=== PATIENT | female | born 1985 | race Caucasian/White ===

== ENCOUNTER → 2016-10-14 | Outpatient (REF) | payer OTHER ==
[~2016-10-14] MED LIST: AMOX500C PO; BENA25CA4 PO; DICL10TA PO; PRENCHW PO; REGL5TAB2 PO
== END ==
LOC: M LAB REF 13:05
PROVIDERS: ATTEND Family Medicine Addiction Medicine
DX: N39.0 Urinary tract infection, site not specified (principal)

== ENCOUNTER 2016-11-18 18:32 | Emergency (ER) | payer OTHER ==
[~2016-11-18] VITALS: Ht 172.7 cm; Wt 54.5 kg
[2016-11-18] MEDS ORDERED: PRENCHW PO (18:38)
[2016-11-18] MEDS ORDERED: AMOX500C PO (21:17)
[2016-11-18 21:23] VITALS: BP 124/75
[2016-11-18] MEDS ORDERED: AMOXICILLIN 500 MG CAP PO ONE (21:30)
== END 2016-11-18 21:30 | disposition home or self-care (01) ==
LOC: M ED 18:32
DX: O23.40 Unspecified infection of urinary tract in pregnancy, unspecified trimester (principal); O99.43 Diseases of the circulatory system complicating the puerperium; Z87.891 Personal history of nicotine dependence; Z3A.00 Weeks of gestation of pregnancy not specified; Z79.899 Other long term (current) drug therapy

== ENCOUNTER 2016-12-10 15:37 | Emergency (ER) | payer OTHER ==
[~2016-12-10] VITALS: Ht 172.7 cm; Wt 54.5 kg
[~2016-12-10 15:37] MED LIST changes: -BENA25CA4 PO; -DICL10TA PO; -REGL5TAB2 PO
[2016-12-10] MEDS ORDERED: PROMETHAZINE INJ 25 MG/ML VIAL (J2550) IV ONE (16:00)
[2016-12-10] MEDS ORDERED: FAMOTIDINE INJ 20MG/2ML VIAL (S0028) IVP ONE (16:00)
[2016-12-10] MEDS ORDERED: NS 1,000 ML IV ONE (16:00)
[2016-12-10 16:17] LABS: BASO % 0.1 % (0.0-1.0); EOS # 0.1 K/mm3 (0.0-0.50); EOS % 0.9 % (0.0-3.0); LARGE UNSTAINED CELL % 0.2 % (0.0-4.0); LYMPH # 0.5 K/mm3 (1.5-4.5); LYMPH % 3.2 % (24.0-44.0); MEAN CORPUSCULAR HEMOGLOBIN 30.4 pg (27.0-33.0); MEAN CORPUSCULAR HGB CONC 34.1 g/dl (32.0-36.5); MEAN CORPUSCULAR VOLUME 89.3 fl (80.0-96.0); MONO # 0.2 K/mm3 (0.0-0.8); MONO % 1.6 % (0.0-5.0); NEUTROPHILS # 13.2 K/mm3 (1.8-7.7); NEUTROPHILS % 94.1 % (36.0-66.0); PLATELET COUNT, AUTOMATED 225 k/mm3 (150-450); RED CELL DISTRIBUTION WIDTH 12.9 % (11.5-14.5); WHITE BLOOD COUNT 14.1 K/mm3 (4.0-10.0)
[2016-12-10 16:37] LABS: ALBUMIN 3.8 GM/DL (3.2-5.2); ALBUMIN/GLOBULIN RATIO 1.06 (1.00-1.93); ALKALINE PHOSPHATASE 49 U/L (45-117); ALT/SGPT 12 U/L (12-78); ANION GAP 13 MEQ/L (8-16); AST/SGOT 13 U/L (15-37); BILIRUBIN,DIRECT 0.1 MG/DL (0.0-0.2); BILIRUBIN,TOTAL 0.5 MG/DL (0.2-1.0); BLOOD UREA NITROGEN 9 MG/DL (7-18); CALCIUM LEVEL 8.4 MG/DL (8.5-10.1); CARBON DIOXIDE LEVEL 21 MEQ/L (21-32); CHLORIDE LEVEL 106 MEQ/L (98-107); CREATININE FOR GFR 0.78 MG/DL (0.55-1.02); GLOMERULAR FILTRATION RATE > 60.0 (>60); GLUCOSE, FASTING 161 MG/DL (70-105); POTASSIUM SERUM 4.1 MEQ/L (3.5-5.1); SODIUM LEVEL 140 MEQ/L (136-145); TOTAL PROTEIN 7.4 GM/DL (6.4-8.2)
--- NOTE | 2016-12-10 16:41 | REP ---
Obstetric sonography: History: Nausea vomiting, chills. Assess for IUP. Findings: Transabdominal scanning confirms the presence of a single living intrauterine gestation in a free-floating lie. Embryonic pole is 42 mm in crown-rump length corresponding to a gestational age estimate of 11 weeks 0 days. heart rate is recorded at 169 beats per minute. No subchorionic hemorrhage is identified. No extrauterine abnormality is observed. No gross anomalies seen. Impression: Viable single intrauterine gestation at 11 weeks 0 days by crown-rump length. No complication is identified. SKYE by today's sonography 07/01/2017. Signed by Deandre Eason MD 12/10/2016 04:43 P
[2016-12-10] MEDS ORDERED: REGL5TAB2 PO (19:19)
[2016-12-10] MEDS ORDERED: BENA25CA4 PO (19:19)
[2016-12-10 19:40] VITALS: BP 127/80
== END 2016-12-10 19:44 | disposition home or self-care (01) ==
LOC: M ED 15:37
DX: O99.611 Diseases of the digestive system complicating pregnancy, first trimester (principal); Z3A.11 11 weeks gestation of pregnancy; Z79.899 Other long term (current) drug therapy

== ENCOUNTER 2016-12-13 18:52 | Emergency (ER) | payer OTHER ==
[~2016-12-13] VITALS: Ht 172.7 cm; Wt 54.5 kg
[~2016-12-13 18:52] MED LIST changes: +BENA25CA4 PO; +REGL5TAB2 PO
[2016-12-13] MEDS ORDERED: ONDANSETRON 4MG/2ML VIAL (J2405) IV ONE ×2 (19:30→22:30)
[2016-12-13] MEDS ORDERED: diphenhydrAMINE INJ 50MG/ML VIAL (J1200) IV ONE ×2 (19:30→22:30)
[2016-12-13] MEDS ORDERED: NS 1,000 ML IV ONE ×2 (19:30→22:30)
[2016-12-13 20:19] LABS: BASO % 0.1 % (0.0-1.0); EOS % 0.3 % (0.0-3.0); LARGE UNSTAINED CELL # 0.1 K/mm3 (0.0-0.4); LARGE UNSTAINED CELL % 0.7 % (0.0-4.0); LYMPH # 0.9 K/mm3 (1.5-4.5); LYMPH % 8.7 % (24.0-44.0); MEAN CORPUSCULAR HEMOGLOBIN 31.7 pg (27.0-33.0); MEAN CORPUSCULAR HGB CONC 36.3 g/dl (32.0-36.5); MEAN CORPUSCULAR VOLUME 87.2 fl (80.0-96.0); MONO # 0.5 K/mm3 (0.0-0.8); MONO % 4.5 % (0.0-5.0); NEUTROPHILS # 8.6 K/mm3 (1.8-7.7); NEUTROPHILS % 85.6 % (36.0-66.0); PLATELET COUNT, AUTOMATED 235 k/mm3 (150-450); RED CELL DISTRIBUTION WIDTH 12.7 % (11.5-14.5)
[2016-12-13 20:51] LABS: ALBUMIN 3.7 GM/DL (3.2-5.2); ALBUMIN/GLOBULIN RATIO 1.06 (1.00-1.93); ALKALINE PHOSPHATASE 45 U/L (45-117); ALT/SGPT 12 U/L (12-78); ANION GAP 12 MEQ/L (8-16); AST/SGOT 9 U/L (15-37); BILIRUBIN,TOTAL 0.9 MG/DL (0.2-1.0); BLOOD UREA NITROGEN 16 MG/DL (7-18); CARBON DIOXIDE LEVEL 25 MEQ/L (21-32); CHLORIDE LEVEL 103 MEQ/L (98-107); CREATININE FOR GFR 0.63 MG/DL (0.55-1.02); GLOMERULAR FILTRATION RATE > 60.0 (>60); GLUCOSE, FASTING 88 MG/DL (70-105); HCG, SERUM QUANTITATIVE 88677 MIU/ML; POTASSIUM SERUM 4.1 MEQ/L (3.5-5.1); SODIUM LEVEL 140 MEQ/L (136-145); TOTAL PROTEIN 7.2 GM/DL (6.4-8.2)
[2016-12-13] MEDS ORDERED: DICL10TA PO (21:04)
[2016-12-14 00:11] VITALS: BP 134/78
== END 2016-12-14 00:14 | disposition home or self-care (01) ==
LOC: M ED 18:52
DX: O21.9 Vomiting of pregnancy, unspecified (principal); Z3A.00 Weeks of gestation of pregnancy not specified
CPT/HCPCS: 36415; 80053; 81001; 84702; 85025; 87086; 96374; 96375; 96376; 99283; J1200; J2405

== ENCOUNTER → 2017-02-16 | Outpatient (REF) | payer OTHER ==
[~2017-02-16] MED LIST changes: +DICL10TA PO
[2017-02-16 20:27] LABS: ALBUMIN/GLOBULIN RATIO 0.88 (1.00-1.93); ALKALINE PHOSPHATASE 53 U/L (45-117); ALT/SGPT 18 U/L (12-78); ANION GAP 8 MEQ/L (8-16); AST/SGOT 12 U/L (7-37); BILIRUBIN,TOTAL 0.5 MG/DL (0.2-1.0); BLOOD UREA NITROGEN 8 MG/DL (7-18); CALCIUM LEVEL 8.2 MG/DL (8.5-10.1); CARBON DIOXIDE LEVEL 27 MEQ/L (21-32); CHLORIDE LEVEL 105 MEQ/L (98-107); CHOLESTEROL LEVEL 182 MG/DL (<200); CREATININE FOR GFR 0.63 MG/DL (0.55-1.02); GLOMERULAR FILTRATION RATE > 60.0 (>60); GLUCOSE, FASTING 80 MG/DL (70-105); POTASSIUM SERUM 3.8 MEQ/L (3.5-5.1); SODIUM LEVEL 140 MEQ/L (136-145); TOTAL PROTEIN 6.4 GM/DL (6.4-8.2); TRIGLYCERIDES LEVEL 111 MG/DL (<150)
== END ==
LOC: M LAB REF 17:20
PROVIDERS: ATTEND Family Medicine Addiction Medicine
DX: Z00.01 Encounter for general adult medical examination with abnormal findings (principal)

== ENCOUNTER → 2017-04-20 | Outpatient (CLI) | payer OTHER, MEDICAID | LOC: M RAD 11:42 | DX: O26.843 Uterine size-date discrepancy, third trimester (principal); Z3A.29 29 weeks gestation of pregnancy | CPT/HCPCS: 76820 ==

== ENCOUNTER → 2017-10-04 | Outpatient (CLI) | payer OTHER, MEDICAID | LOC: M RAD 10:43 | DX: E04.1 Nontoxic single thyroid nodule (principal) | CPT/HCPCS: 71250 ==

== ENCOUNTER → 2018-08-29 | Outpatient (CLI) | payer OTHER, MEDICAID ==
[~2018-08-29] MED LIST changes: +IBUP-1114 PO; +MAPA500T2 PO
--- NOTE | 2018-08-30 05:46 | REP ---
Clinical: Anatomical evaluation. Comparison: None . Findings: Examination demonstrates a single live intrauterine in variable presentation. motion is identified by technologist. Placenta is noted anterior and grade zero without evidence for placenta previa or abruption. Amniotic fluid volume is normal. Cervix measures 4.7 cm in length and appears closed. No evidence for nuchal cord. Gestational age by LMP 21 weeks 2 days with SKYE 01/07/2019 . Gestational age by current measurements 20 weeks 4 days with SKYE 01/12/2019 . FHR equals 153 beats per minute. BPD 4.7 cm 20 weeks 2 days HC 17.6 cm 20 weeks 0 days AC 16.0 cm 21 weeks 1 day FL 3.3 cm 20 weeks 3 days HL 3.3 cm 21 weeks 2 days HC/AC ratio 1.10 Estimated weight 370 grams (27 percentile). Anatomical assessment demonstrates normal structures including cranium, choroid plexus, cavum, cerebellum/posterior fossa, facial features, lungs, four-chamber heart/ventricular outflow tracts, diaphragm, stomach, cord insertion/three-vessel cord, kidneys/bladder, spine, and extremities. Impression: Single live intrauterine in variable presentation demonstrating appropriate interval growth. Anatomical assessment is complete and normal. No gross abnormalities are identified. Electronically Signed by Vimal Serrano MD 08/30/2018 05:38 A
== END ==
LOC: M RAD 10:45
PROVIDERS: ATTEND Obstetrics & Gynecology
DX: Z34.82 Encounter for supervision of other normal pregnancy, second trimester (principal); Z36.89 Encounter for other specified antenatal screening; Z3A.21 21 weeks gestation of pregnancy

== ENCOUNTER → 2019-01-09 | Outpatient (CLI) | payer MEDICAID, OTHER ==
--- NOTE | 2019-01-09 08:12 | REP ---
OBSTETRIC SONOGRAPHY: HISTORY: Supervision of . growth study, size less than dates. FINDINGS: Scanning through the gravid uterus demonstrates a viable single intrauterine gestation in a cephalic lie. motion is observed and heart rate is recorded at 147 beats per minute. Anterior grade 2 placenta is seen without evidence of previa or abruption. Amniotic fluid is subjectively normal. The cervix was viewed transabdominally but could not be measured due to low head position. There has been appropriate interval growth. Umbilical cord is seen draping over the neck. BIOMETRY CHART: BPD 9.3 cm = 37 weeks 5 days HC 33.4 cm = 38 weeks 2 days AC 34.1 cm = 38 weeks 0 days FL 7.6 cm =38 weeks 6 days HL 6.6 cm = 38 weeks 2 days HC/AC ratio 0.98 Cephalic index normal 0.78 Estimated weight 3424 grams, 7 pounds 8 ounces. TON normal 10.7 cm. S/D ratio 2.71 (1.60-2.60). IMPRESSION: Viable single intrauterine gestation at the 39 weeks 4 days by today's composite sonographic criteria. Expected gestational age estimate based on prior sonography is 38 weeks 2 days. SKYE by prior sonography January 15, 2019. Electronically Signed by Deandre Eason MD 01/09/2019 09:44 A
== END ==
LOC: M RAD 06:14
PROVIDERS: ATTEND Midwife
DX: Z34.93 Encounter for supervision of normal pregnancy, unspecified, third trimester (principal); Z3A.39 39 weeks gestation of pregnancy

== ENCOUNTER → 2019-04-03 | Outpatient (REF) | payer OTHER ==
[2019-04-03 14:04] LABS: BASO # 0.1 10^3/uL (0.0-0.2); BASO % 1.2 % (0.0-1.0); EOS # 0.1 10^3/uL (0.0-0.5); EOS % 3.1 % (0.0-3.0); HEMATOCRIT 39.8 % (36.0-47.0); HEMOGLOBIN 12.6 g/dl (12.0-15.5); LYMPH # 1.8 10^3/uL (1.5-5.0); LYMPH % 41.9 % (24.0-44.0); MEAN CORPUSCULAR HEMOGLOBIN 27.5 pg (27.0-33.0); MEAN CORPUSCULAR HGB CONC 31.7 g/dl (32.0-36.5); MEAN CORPUSCULAR VOLUME 86.7 fl (80.0-96.0); MONO # 0.5 10^3/uL (0.0-0.8); MONO % 10.6 % (0.0-5.0); NEUTROPHILS # 1.8 10^3/uL (1.5-8.5); NEUTROPHILS % 42.5 % (36.0-66.0); PLATELET COUNT, AUTOMATED 242 10^3/uL (150-450); RED BLOOD COUNT 4.59 10^6/uL (4.00-5.40); WHITE BLOOD COUNT 4.3 10^3/uL (4.0-10.0)
[2019-04-03 14:38] LABS: HEMOGLOBIN A1c 4.9 %
[2019-04-03 14:40] LABS: ALBUMIN 3.6 GM/DL (3.2-5.2); ALT/SGPT 18 U/L (12-78); BILIRUBIN,TOTAL 0.3 MG/DL (0.2-1.0); BLOOD UREA NITROGEN 12 MG/DL (7-18); CALCIUM LEVEL 8.6 MG/DL (8.5-10.1); CARBON DIOXIDE LEVEL 26 MEQ/L (21-32); CHLORIDE LEVEL 107 MEQ/L (98-107); CHOLESTEROL LEVEL 181 MG/DL (<200); CHOLESTEROL RISK RATIO 2.479 (<5); CREATININE FOR GFR 0.95 MG/DL (0.55-1.30); FREE T4 0.85 NG/DL (0.76-1.46); GLOMERULAR FILTRATION RATE > 60.0 (>60); GLUCOSE, FASTING 89 MG/DL (70-100); HDL CHOLESTEROL 73 MG/DL (>40); LDL CHOLESTEROL 95 MG/DL (<100); NON-HDL-C 108 MG/DL; POTASSIUM SERUM 4.4 MEQ/L (3.5-5.1); SODIUM LEVEL 141 MEQ/L (136-145); TOTAL PROTEIN 7.1 GM/DL (6.4-8.2); TRIGLYCERIDES LEVEL 63 MG/DL (<150)
[2019-04-03 14:43] LABS: TOTAL 25(OH) VITAMIN D 28.2 NG/ML (30.0-100.0)
[2019-04-05 14:13] LABS: Lyme Disease IgG/IgM Antibodie <0.91 ISR (0.00-0.90); Lyme Disease IgM Ab Quantitati <0.80 index (0.00-0.79)
== END ==
LOC: M LAB REF 13:13
PROVIDERS: ATTEND Family Medicine
DX: M25.50 Pain in unspecified joint (principal)

== ENCOUNTER → 2019-10-09 | Outpatient (CLI) | payer OTHER | LOC: M LABSMTC 14:05 → EEVIPCON 14:05 | PROVIDERS: ATTEND Family Medicine | DX: Z11.59 Encounter for screening for other viral diseases (principal) | CPT/HCPCS: C9803; U0003 ==

== ENCOUNTER → 2020-03-20 | Outpatient (CLI) | payer OTHER | LOC: M WUC 10:55 | PROVIDERS: ATTEND Physician Assistant | DX: Z77.011 Contact with and (suspected) exposure to lead (principal) ==

== ENCOUNTER → 2020-12-25 | Outpatient (CLI) | payer OTHER | LOC: M LAB 08:20 | PROVIDERS: ATTEND Nurse Practitioner Adult Health | DX: O24.419 Gestational diabetes mellitus in pregnancy, unspecified control (principal); Z3A.00 Weeks of gestation of pregnancy not specified ==

== ENCOUNTER 2021-06-09 00:33 | Emergency (ER) | payer OTHER ==
[~2021-06-09] VITALS: Ht 172.7 cm; Wt 50.4 kg
[2021-06-09] MEDS ORDERED: NS 1,000 ML IV ONE (01:25)
[2021-06-09 02:00] LABS: BASO % 0.3 % (0.0-1.0); HEMATOCRIT 39.2 % (36.0-47.0); HEMOGLOBIN 12.2 g/dl (12.0-15.5); LYMPH # 1.4 10^3/uL (1.5-5.0); LYMPH % 15.5 % (24.0-44.0); MEAN CORPUSCULAR HEMOGLOBIN 24.8 pg (27.0-33.0); MEAN CORPUSCULAR HGB CONC 31.1 g/dl (32.0-36.5); MEAN CORPUSCULAR VOLUME 79.7 fl (80.0-96.0); MONO # 0.9 10^3/uL (0.0-0.8); MONO % 9.7 % (2.0-8.0); NEUTROPHILS # 6.5 10^3/uL (1.5-8.5); NEUTROPHILS % 74.2 % (36.0-66.0); PLATELET COUNT, AUTOMATED 363 10^3/uL (150-450); RED BLOOD COUNT 4.92 10^6/uL (4.00-5.40); WHITE BLOOD COUNT 8.8 10^3/uL (4.0-10.0)
[2021-06-09] MEDS ORDERED: ONDANSETRON 4MG/2ML VIAL As Ordered ONE (02:08)
[2021-06-09] MEDS ORDERED: ONDANSETRON 4MG/2ML VIAL IV ONE (02:15)
[2021-06-09 02:33] LABS: ALBUMIN 4.1 GM/DL (3.2-5.2); ALT/SGPT 18 U/L (12-78); BILIRUBIN,DIRECT 0.2 MG/DL (0.0-0.2); BILIRUBIN,TOTAL 0.6 MG/DL (0.2-1.0); BLOOD UREA NITROGEN 26 MG/DL (7-18); CALCIUM LEVEL 8.9 MG/DL (8.5-10.1); CARBON DIOXIDE LEVEL 27 MEQ/L (21-32); CHLORIDE LEVEL 105 MEQ/L (98-107); CREATININE FOR GFR 0.93 MG/DL (0.55-1.30); GLOMERULAR FILTRATION RATE > 60.0 (>60); GLUCOSE, FASTING 119 MG/DL (70-100); LIPASE 69 U/L (73-393); POTASSIUM SERUM 4.1 MEQ/L (3.5-5.1); SODIUM LEVEL 139 MEQ/L (136-145); TOTAL PROTEIN 7.4 GM/DL (6.4-8.2)
[2021-06-09] MEDS ORDERED: METOCLOPRAMIDE INJ 10MG/2ML VIAL (J2765 PER 1) IV ONE (03:25)
[2021-06-09 04:31] VITALS: BP 140/84
[2021-06-09] MEDS ORDERED: REGL10TA6 PO (05:59)
[2021-06-09] MEDS ORDERED: ONDA4TAB6 PO (05:59)
== END 2021-06-09 06:16 | disposition home or self-care (01) ==
LOC: M ED 00:33
DX: K52.9 Noninfective gastroenteritis and colitis, unspecified (principal); F10.10 Alcohol abuse, uncomplicated
CPT/HCPCS: 80048; 80076; 83605; 83690; 84702; 85025; 93041; 96361; 96374; 96375; 99284; J2405; J2765

== ENCOUNTER 2021-08-11 14:28 | Emergency (ER) | payer OTHER ==
[~2021-08-11] VITALS: Ht 170.2 cm; Wt 54.6 kg
[~2021-08-11 14:28] MED LIST changes: +ONDA4TAB6 PO; +REGL10TA6 PO
[2021-08-11] MEDS ORDERED: KETOROLAC 30 MG/ML 1ML VIAL IM ONE (20:00)
[2021-08-11 20:30] VITALS: BP 132/92
== END 2021-08-11 20:39 | disposition home or self-care (01) ==
LOC: M ED 14:28
DX: S83.92XA Sprain of unspecified site of left knee, initial encounter (principal); W50.2XXA Accidental twist by another person, initial encounter; Y92.009 Unspecified place in unspecified non-institutional (private) residence as the place of occurrence of the external cause; Y93.9 Activity, unspecified; Y99.9 Unspecified external cause status
CPT/HCPCS: 73564; 96372; 99284; J1885

== ENCOUNTER 2021-10-29 10:24 | Emergency (ER) | payer OTHER ==
[~2021-10-29] VITALS: Ht 170.2 cm; Wt 49.8 kg
[2021-10-29 12:33] LABS: BASO % 0.2 % (0.0-1.0); HEMATOCRIT 44.2 % (36.0-47.0); HEMOGLOBIN 14.2 g/dl (12.0-15.5); LYMPH # 1.2 10^3/uL (1.5-5.0); LYMPH % 12.5 % (24.0-44.0); MEAN CORPUSCULAR HEMOGLOBIN 26.3 pg (27.0-33.0); MEAN CORPUSCULAR HGB CONC 32.1 g/dl (32.0-36.5); MEAN CORPUSCULAR VOLUME 81.9 fl (80.0-96.0); MONO # 0.7 10^3/uL (0.0-0.8); MONO % 7.7 % (2.0-8.0); NEUTROPHILS # 7.4 10^3/uL (1.5-8.5); NEUTROPHILS % 79.2 % (36.0-66.0); PLATELET COUNT, AUTOMATED 439 10^3/uL (150-450); WHITE BLOOD COUNT 9.3 10^3/uL (4.0-10.0)
[2021-10-29 13:00] LABS: ALBUMIN 4.4 GM/DL (3.2-5.2); ALT/SGPT 20 U/L (12-78); BILIRUBIN,DIRECT 0.2 MG/DL (0.0-0.2); BILIRUBIN,TOTAL 0.8 MG/DL (0.2-1.0); BLOOD UREA NITROGEN 27 MG/DL (7-18); CARBON DIOXIDE LEVEL 28 MEQ/L (21-32); CHLORIDE LEVEL 101 MEQ/L (98-107); CREATININE FOR GFR 0.86 MG/DL (0.55-1.30); GLOMERULAR FILTRATION RATE > 60.0 (>60); GLUCOSE, FASTING 103 MG/DL (70-100); LIPASE 68 U/L (73-393); POTASSIUM SERUM 4.8 MEQ/L (3.5-5.1); SODIUM LEVEL 134 MEQ/L (136-145); TOTAL PROTEIN 8.3 GM/DL (6.4-8.2)
[2021-10-29] MEDS ORDERED: ONDANSETRON 4MG 2ML VIAL IV ONE (16:25)
[2021-10-29] MEDS ORDERED: KETOROLAC 30 MG/ML 1ML VIAL IV ONE (16:25)
[2021-10-29] MEDS ORDERED: ISOVUE-370 76% 100ML VIAL As Ordered ONE (16:28)
[2021-10-29] MEDS ORDERED: NS 1,000 ML IV ONE (17:05)
[2021-10-29 20:28] LABS: NT-PRO BNP 161 PG/ML (<125)
[2021-10-29] MEDS ORDERED: LIDOCAINE 5% (LIDODERM) PATCH TD ONE (20:40)
[2021-10-29 20:41] LABS: CK-MB VALUE MASS 3.6 NG/ML (<3.6); MB/CK RELATIVE INDEX 2.42 (< OR =4)
[2021-10-29] MEDS ORDERED: PERCOCET 5MG/325MG TAB PO ONE (20:50)
[2021-10-29] MEDS ORDERED: **NOTE PATIENT COMMENT** MISC XX SCH (21:00)
[2021-10-30] MEDS ORDERED: ONDANSETRON 4MG 2ML VIAL IV ONE (00:15)
[2021-10-30 01:01] VITALS: BP 135/86
[2021-10-30] MEDS ORDERED: ONDA4TAB6 PO (01:02)
[2021-10-30] MEDS ORDERED: LIDO5DIS41 TOP (01:02)
== END 2021-10-30 01:26 | disposition home or self-care (01) ==
LOC: M ED 10:24
DX: I31.3 Pericardial effusion (noninflammatory) (principal); R11.2 Nausea with vomiting, unspecified; I10 Essential (primary) hypertension; J45.909 Unspecified asthma, uncomplicated; D64.9 Anemia, unspecified; R91.1 Solitary pulmonary nodule; Z87.42 Personal history of other diseases of the female genital tract; Z79.899 Other long term (current) drug therapy
CPT/HCPCS: 74177; 80048; 80076; 81001; 82550; 82553; 83690; 83880; 84702; 85025; 93005; 93306; 96374; 96375; 96376; 99285; J1885; J2405; Q9967

== ENCOUNTER → 2021-12-03 | Outpatient (CLI) | payer OTHER ==
[~2021-12-03] MED LIST changes: +LIDO5DIS41 TOP
== END ==
LOC: M SOG 08:31
PROVIDERS: ATTEND Orthopaedic Surgery
DX: M41.9 Scoliosis, unspecified (principal); M54.50 Low back pain, unspecified

== ENCOUNTER → 2022-01-02 | Outpatient (CLI) | payer OTHER ==
[~2022-01-02] MED LIST changes: +GAVISUS PO
== END ==
LOC: M PLARAD 10:46
PROVIDERS: ATTEND Orthopaedic Surgery
DX: M51.27 Other intervertebral disc displacement, lumbosacral region (principal); M54.32 Sciatica, left side

== ENCOUNTER 2022-01-06 11:45 | Outpatient (RCR) | payer OTHER ==
[~2022-01-06 11:45] MED LIST changes: -GAVISUS PO
[2022-01-07] MEDS ORDERED: GAVISUS PO (12:22)
== END 2022-01-26 ==
LOC: M PT 11:45
PROVIDERS: ATTEND Orthopaedic Surgery
DX: M54.32 Sciatica, left side (principal)

== ENCOUNTER → 2022-01-06 | Outpatient (CLI) | payer OTHER | LOC: M LABSMTC 11:55 | PROVIDERS: ATTEND Anesthesiology | DX: Z01.818 Encounter for other preprocedural examination (principal); Z11.52 Encounter for screening for COVID-19 ==

== ENCOUNTER → 2022-01-08 | Outpatient (CLI) | payer OTHER ==
[~2022-01-08] MED LIST changes: +GAVISUS PO
== END ==
LOC: M LABSMTC 10:08
PROVIDERS: ATTEND Anesthesiology
DX: Z01.812 Encounter for preprocedural laboratory examination (principal); Z20.822 Contact with and (suspected) exposure to COVID-19

== ENCOUNTER 2022-01-09 09:30 | Day surgery (SDC) | payer OTHER ==
[~2022-01-09] VITALS: Ht 170.2 cm; Wt 52.1 kg
[~2022-01-09 09:30] MED LIST changes: +NS 1,000 ML IV ONE
[2022-01-09 11:55] VITALS: BP 141/71
== END 2022-01-09 12:22 | disposition home or self-care (01) ==
LOC: M OPP 09:30
PROVIDERS: ATTEND Internal Medicine Gastroenterology
DX: K57.30 Diverticulosis of large intestine without perforation or abscess without bleeding (principal); K64.4 Residual hemorrhoidal skin tags; K64.8 Other hemorrhoids; K63.89 Other specified diseases of intestine; K31.89 Other diseases of stomach and duodenum; K92.2 Gastrointestinal hemorrhage, unspecified; Z87.891 Personal history of nicotine dependence; Z86.79 Personal history of other diseases of the circulatory system; J44.9 Chronic obstructive pulmonary disease, unspecified; Z79.899 Other long term (current) drug therapy

== ENCOUNTER → 2022-07-02 | Outpatient (REF) | payer OTHER ==
[~2022-07-02] MED LIST changes: -NS 1,000 ML IV ONE
[2022-07-02 19:24] LABS: HIV 1&2 SCREEN ATELLICA NEGATIVE (NEGATIVE)
[2022-07-02 19:35] LABS: HEPATITIS C VIRUS ABY INDEX 0.1 INDEX (<0.8)
== END ==
LOC: M LAB REF 16:20
PROVIDERS: ATTEND Family Medicine Addiction Medicine
DX: Z11.3 Encounter for screening for infections with a predominantly sexual mode of transmission (principal)

== ENCOUNTER → 2022-07-14 | Outpatient (REF) | payer OTHER | LOC: M LAB REF 12:23 | PROVIDERS: ATTEND Family Medicine Addiction Medicine | DX: R30.9 Painful micturition, unspecified (principal) ==

== ENCOUNTER → 2022-09-01 | Outpatient (REF) | payer OTHER | LOC: M LAB REF 16:52 | PROVIDERS: ATTEND Physician Assistant | DX: J02.9 Acute pharyngitis, unspecified (principal) ==

== ENCOUNTER 2023-02-18 23:00 | Emergency (ER) | payer OTHER ==
[~2023-02-18] VITALS: Ht 170.2 cm; Wt 54.0 kg
[~2023-02-18 23:00] MED LIST changes: +CIPR-249 PO; +METR-265 PO
[2023-02-19] MEDS ORDERED: NS 1,000 ML IV ONE (00:05)
[2023-02-19 00:38] LABS: BASO % 0.2 % (0.0-1.0); HEMATOCRIT 39.2 % (36.0-47.0); HEMOGLOBIN 12.9 g/dl (12.0-15.5); LYMPH # 0.6 10^3/uL (1.5-5.0); MEAN CORPUSCULAR HEMOGLOBIN 29.1 pg (27.0-33.0); MEAN CORPUSCULAR HGB CONC 32.9 g/dl (32.0-36.5); MEAN CORPUSCULAR VOLUME 88.3 fl (80.0-96.0); MONO # 0.1 10^3/uL (0.0-0.8); MONO % 2.5 % (2.0-8.0); NEUTROPHILS % 84.9 % (36.0-66.0); PLATELET COUNT, AUTOMATED 259 10^3/uL (150-450); RED BLOOD COUNT 4.44 10^6/uL (4.00-5.40); WHITE BLOOD COUNT 4.8 10^3/uL (4.0-10.0)
[2023-02-19 01:00] LABS: LIPASE 19 U/L (12-53)
[2023-02-19 01:02] LABS: ALBUMIN 3.6 G/DL (3.2-5.2); ALKALINE PHOSPHATASE 77 U/L (46-116); ALT/SGPT 10 U/L (7.0-40); AST/SGOT 17 U/L (<34); BILIRUBIN,DIRECT 0.1 MG/DL (<0.4); BILIRUBIN,TOTAL 0.3 MG/DL (0.3-1.2); BLOOD UREA NITROGEN 13 MG/DL (9-23); CALCIUM LEVEL 8.6 MG/DL (8.5-10.1); CARBON DIOXIDE LEVEL 25 MMOL/L (20-31); CHLORIDE LEVEL 107 MMOL/L (98-107); CREATININE FOR GFR 0.58 MG/DL (0.55-1.30); GLOMERULAR FILTRATION RATE > 60.0 (>60); GLUCOSE, FASTING 161 MG/DL (60-100); POTASSIUM SERUM 4.3 MMOL/L (3.5-5.1); SODIUM LEVEL 141 MMOL/L (136-145); TOTAL PROTEIN 7.8 G/DL (5.7-8.2)
[2023-02-19 01:15] LABS: HCG, SERUM QUALITATIVE NEGATIVE (NEGATIVE)
[2023-02-19 02:45] VITALS: TEMP 98.7
[2023-02-19] MEDS ORDERED: ONDANSETRON 4MG 2ML VIAL IV ONE (04:05)
[2023-02-19] MEDS ORDERED: ONDANSETRON 4MG 2ML VIAL As Ordered ONE (04:11)
[2023-02-19 04:30] VITALS: BP 112/72; O2SAT 97
[2023-02-19] MEDS ORDERED: OMEP40CA5 PO (04:31)
[2023-02-19] MEDS ORDERED: HOME MED LIST COMPLETE! XX SCH (04:35)
[2023-02-19] MEDS ORDERED: ONDA4TAB6 PO (04:39)
[2023-02-19] MEDS ORDERED: NIRMATRELVIR/RITONAVIR CO-PACK (EMERGENCY USE AUTH) PO SCH ×2 (09:00)
== END 2023-02-19 04:51 | disposition home or self-care (01) ==
LOC: M ED 23:00
DX: U07.1 COVID-19 (principal); Z79.899 Other long term (current) drug therapy
CPT/HCPCS: 80048; 80076; 81001; 83690; 84703; 85025; 87040; 87486; 87581; 87633; 87798; 93041; 96374; 99284; J2405

== ENCOUNTER → 2023-03-04 | Outpatient (REF) | payer OTHER ==
[~2023-03-04] MED LIST changes: +OMEP40CA5 PO
[2023-03-04 13:16] LABS: BLOOD UREA NITROGEN 8 MG/DL (9-23); CALCIUM LEVEL 8.7 MG/DL (8.5-10.1); CARBON DIOXIDE LEVEL 29 MMOL/L (20-31); CHLORIDE LEVEL 105 MMOL/L (98-107); CREATININE FOR GFR 0.84 MG/DL (0.55-1.30); GLOMERULAR FILTRATION RATE > 60.0 (>60); GLUCOSE, FASTING 91 MG/DL (60-100); POTASSIUM SERUM 4.5 MMOL/L (3.5-5.1); SODIUM LEVEL 140 MMOL/L (136-145)
[2023-03-04 14:02] LABS: HEMOGLOBIN A1c 4.6 % (4.0-6.0)
== END ==
LOC: M LAB REF 12:25
PROVIDERS: ATTEND Family Medicine Addiction Medicine
DX: R81 Glycosuria (principal)

== ENCOUNTER 2023-03-18 17:50 | Emergency (ER) | payer OTHER ==
[~2023-03-18] VITALS: Ht 170.2 cm; Wt 49.6 kg
[2023-03-18] MEDS ORDERED: ACETAMINOPHEN TAB 650MG DOSE (2X325MG) PO ONE (18:50)
[2023-03-18 19:31] LABS: BASO % 0.2 % (0.0-1.0); EOS % 0.1 % (0.0-3.0); HEMATOCRIT 37.2 % (36.0-47.0); HEMOGLOBIN 12.3 g/dl (12.0-15.5); LYMPH # 1.5 10^3/uL (1.5-5.0); LYMPH % 9.7 % (24.0-44.0); MEAN CORPUSCULAR HEMOGLOBIN 28.9 pg (27.0-33.0); MEAN CORPUSCULAR HGB CONC 33.1 g/dl (32.0-36.5); MEAN CORPUSCULAR VOLUME 87.5 fl (80.0-96.0); MONO # 1.1 10^3/uL (0.0-0.8); MONO % 7.4 % (2.0-8.0); NEUTROPHILS # 12.4 10^3/uL (1.5-8.5); NEUTROPHILS % 81.7 % (36.0-66.0); PLATELET COUNT, AUTOMATED 421 10^3/uL (150-450); RED BLOOD COUNT 4.25 10^6/uL (4.00-5.40); WHITE BLOOD COUNT 15.1 10^3/uL (4.0-10.0)
[2023-03-18 19:59] LABS: ALKALINE PHOSPHATASE 72 U/L (46-116); ALT/SGPT < 9 U/L (7.0-40); AST/SGOT 14 U/L (<34); BILIRUBIN,DIRECT 0.2 MG/DL (<0.4); BILIRUBIN,TOTAL 0.6 MG/DL (0.3-1.2); BLOOD UREA NITROGEN 12 MG/DL (9-23); CALCIUM LEVEL 8.8 MG/DL (8.5-10.1); CARBON DIOXIDE LEVEL 24 MMOL/L (20-31); CHLORIDE LEVEL 102 MMOL/L (98-107); CREATININE FOR GFR 0.59 MG/DL (0.55-1.30); GLOMERULAR FILTRATION RATE > 60.0 (>60); GLUCOSE, FASTING 78 MG/DL (60-100); SODIUM LEVEL 137 MMOL/L (136-145)
[2023-03-18] MEDS ORDERED: ALBUTEROL 90 MCG/ACT 8GM HFA INHALER INH ONE (20:35)
[2023-03-18] MEDS ORDERED: AZITHROMYCIN 250MG TABLET PO ONE (20:35)
[2023-03-18] MEDS ORDERED: cefTRIAXone SOD 2 GM in D5W MINI-BAG PLUS 50 ML IV ONE (20:35)
[2023-03-18] MEDS ORDERED: AZIT-12 PO (20:37)
[2023-03-18] MEDS ORDERED: AMOX500C PO (20:37)
[2023-03-18] MEDS ORDERED: DOXYCYCLINE HYCLATE 100MG TABLET PO ONE (20:45)
[2023-03-18] MEDS ORDERED: DOXY-443 PO (20:45)
[2023-03-18 21:20] VITALS: O2SAT 97
[2023-03-18 21:30] VITALS: BP 105/70; TEMP 98.6
== END 2023-03-18 21:44 | disposition home or self-care (01) ==
LOC: M ED 17:50
DX: J18.9 Pneumonia, unspecified organism (principal); R00.0 Tachycardia, unspecified; I45.19 Other right bundle-branch block; K21.9 Gastro-esophageal reflux disease without esophagitis; Z79.2 Long term (current) use of antibiotics; Z79.83 Long term (current) use of bisphosphonates; Z79.899 Other long term (current) drug therapy
CPT/HCPCS: 71045; 80048; 80076; 83605; 85025; 87040; 87486; 87581; 87633; 87798; 93005; 93041; 94640; 94760; 96365; 99285; J0696

== ENCOUNTER → 2023-06-10 | Outpatient (REF) | payer OTHER ==
[~2023-06-10] MED LIST changes: +AZIT-12 PO; +DOXY-443 PO
[2023-06-10 17:26] LABS: ALBUMIN 4.1 G/DL (3.2-5.2); ALKALINE PHOSPHATASE 57 U/L (46-116); ALT/SGPT < 9 U/L (7.0-40); AST/SGOT < 8 U/L (<34); BILIRUBIN,TOTAL 0.4 MG/DL (0.3-1.2); BLOOD UREA NITROGEN 15 MG/DL (9-23); CALCIUM LEVEL 8.6 MG/DL (8.5-10.1); CARBON DIOXIDE LEVEL 27 MMOL/L (20-31); CHLORIDE LEVEL 107 MMOL/L (98-107); CHOLESTEROL LEVEL 109 MG/DL (<200); CHOLESTEROL RISK RATIO 2.17 (<5); CREATININE FOR GFR 0.67 MG/DL (0.55-1.30); GLOMERULAR FILTRATION RATE > 60.0 (>60); GLUCOSE, FASTING 93 MG/DL (60-100); HDL CHOLESTEROL 50.1 MG/DL (>40); LDL CHOLESTEROL 49.3 MG/DL (<100); NON-HDL-C 58.9 MG/DL; POTASSIUM SERUM 4.2 MMOL/L (3.5-5.1); SODIUM LEVEL 136 MMOL/L (136-145); THYROID STIMULATING HORMONE 1.708 uIU/ML (0.55-4.78); TRIGLYCERIDES LEVEL 48 MG/DL (<150)
[2023-06-10 17:58] LABS: BASO % 0.7 % (0.0-1.0); EOS % 0.7 % (0.0-3.0); HEMATOCRIT 37.2 % (36.0-47.0); LYMPH # 1.6 10^3/uL (1.5-5.0); LYMPH % 34.2 % (24.0-44.0); MEAN CORPUSCULAR HEMOGLOBIN 27.6 pg (27.0-33.0); MEAN CORPUSCULAR HGB CONC 32.3 g/dl (32.0-36.5); MEAN CORPUSCULAR VOLUME 85.7 fl (80.0-96.0); MONO # 0.4 10^3/uL (0.0-0.8); MONO % 7.7 % (2.0-8.0); NEUTROPHILS # 2.6 10^3/uL (1.5-8.5); NEUTROPHILS % 56.5 % (36.0-66.0); PLATELET COUNT, AUTOMATED 231 10^3/uL (150-450); RED BLOOD COUNT 4.34 10^6/uL (4.00-5.40); WHITE BLOOD COUNT 4.6 10^3/uL (4.0-10.0)
== END ==
LOC: M LAB REF 16:33
PROVIDERS: ATTEND Family Medicine Addiction Medicine
DX: Z13.228 Encounter for screening for other metabolic disorders (principal)

== ENCOUNTER → 2023-06-10 | Outpatient (CLI) | payer OTHER ==
[2023-06-10 15:16] LABS: ALBUMIN 3.9 G/DL (3.2-5.2); ALKALINE PHOSPHATASE 57 U/L (46-116); ALT/SGPT < 9 U/L (7.0-40); AST/SGOT < 8 U/L (<34); BILIRUBIN,DIRECT 0.1 MG/DL (<0.4); BILIRUBIN,TOTAL 0.3 MG/DL (0.3-1.2); TOTAL PROTEIN 6.8 G/DL (5.7-8.2)
== END ==
LOC: M WUC 09:26
PROVIDERS: ATTEND Internal Medicine Gastroenterology
DX: R11.2 Nausea with vomiting, unspecified (principal)

== ENCOUNTER 2023-07-27 15:21 | Emergency (ER) | payer OTHER ==
[~2023-07-27] VITALS: Ht 170.2 cm; Wt 54.3 kg
[~2023-07-27 15:21] MED LIST changes: +DOXY-323 PO; -DOXY-443 PO
[2023-07-27] MEDS: METOCLOPRAMIDE INJ 10MG/2ML VIAL IV ONE (16:36)
[2023-07-27] MEDS: NS 1,000 ML IV ONE (16:37)
[2023-07-27 16:39] LABS: BASO % 0.2 % (0.0-1.0); EOS % 0.1 % (0.0-3.0); HEMATOCRIT 39.5 % (36.0-47.0); HEMOGLOBIN 13.2 g/dl (12.0-15.5); LYMPH % 10.7 % (24.0-44.0); MEAN CORPUSCULAR HEMOGLOBIN 26.9 pg (27.0-33.0); MEAN CORPUSCULAR HGB CONC 33.4 g/dl (32.0-36.5); MEAN CORPUSCULAR VOLUME 80.6 fl (80.0-96.0); MONO # 0.7 10^3/uL (0.0-0.8); MONO % 7.4 % (2.0-8.0); NEUTROPHILS # 7.5 10^3/uL (1.5-8.5); NEUTROPHILS % 81.3 % (36.0-66.0); PLATELET COUNT, AUTOMATED 336 10^3/uL (150-450); WHITE BLOOD COUNT 9.2 10^3/uL (4.0-10.0)
[2023-07-27 17:19] LABS: LIPASE 28 U/L (12-53)
[2023-07-27 17:21] LABS: ALBUMIN 4.2 G/DL (3.2-5.2); ALKALINE PHOSPHATASE 65 U/L (46-116); ALT/SGPT < 9 U/L (7.0-40); AST/SGOT 14 U/L (<34); BILIRUBIN,DIRECT 0.2 MG/DL (<0.4); BILIRUBIN,TOTAL 0.8 MG/DL (0.3-1.2); TOTAL PROTEIN 7.6 G/DL (5.7-8.2)
[2023-07-27 18:14] LABS: HCG, SERUM QUANTITATIVE 251599.2 MIU/ML (<4.2)
[2023-07-27] MEDS ORDERED: REGL10TA6 PO (19:24)
[2023-07-27 19:31] VITALS: BP 146/95; TEMP 98.9; O2SAT 100
== END 2023-07-27 19:45 | disposition home or self-care (01) ==
LOC: M ED 15:21
DX: O21.1 Hyperemesis gravidarum with metabolic disturbance (principal); J44.9 Chronic obstructive pulmonary disease, unspecified; K21.9 Gastro-esophageal reflux disease without esophagitis; Z79.83 Long term (current) use of bisphosphonates; Z79.891 Long term (current) use of opiate analgesic; Z3A.09 9 weeks gestation of pregnancy
CPT/HCPCS: 76801; 80047; 80076; 81001; 83690; 84702; 85025; 93976; 96361; 96374; 99284; J2765

== ENCOUNTER 2023-09-24 15:50 | Emergency (ER) | payer OTHER ==
[~2023-09-24] VITALS: Ht 170.2 cm; Wt 54.1 kg
[~2023-09-24 15:50] MED LIST changes: +ONDA-282 PO; -ONDA4TAB6 PO
[2023-09-24 17:21] LABS: BASO % 0.1 % (0.0-1.0); HEMATOCRIT 37.9 % (36.0-47.0); HEMOGLOBIN 12.7 g/dl (12.0-15.5); LYMPH % 9.3 % (24.0-44.0); MEAN CORPUSCULAR HEMOGLOBIN 28.1 pg (27.0-33.0); MEAN CORPUSCULAR HGB CONC 33.5 g/dl (32.0-36.5); MEAN CORPUSCULAR VOLUME 83.8 fl (80.0-96.0); MONO # 0.7 10^3/uL (0.0-0.8); MONO % 6.3 % (2.0-8.0); NEUTROPHILS # 8.6 10^3/uL (1.5-8.5); NEUTROPHILS % 83.4 % (36.0-66.0); PLATELET COUNT, AUTOMATED 254 10^3/uL (150-450); RED BLOOD COUNT 4.52 10^6/uL (4.00-5.40); WHITE BLOOD COUNT 10.3 10^3/uL (4.0-10.0)
[2023-09-24 17:44] LABS: LIPASE 26 U/L (12-53)
[2023-09-24 17:46] LABS: ALBUMIN 3.6 G/DL (3.2-5.2); ALKALINE PHOSPHATASE 62 U/L (46-116); ALT/SGPT 11 U/L (7.0-40); AST/SGOT < 8 U/L (<34); BILIRUBIN,DIRECT 0.2 MG/DL (<0.4); BILIRUBIN,TOTAL 0.7 MG/DL (0.3-1.2)
[2023-09-24] MEDS: ONDANSETRON 4MG 2ML VIAL IV ONE (18:23)
[2023-09-24] MEDS: METOCLOPRAMIDE INJ 10MG/2ML VIAL IV ONE (19:53)
[2023-09-24 21:52] VITALS: TEMP 99.2
[2023-09-24 21:54] VITALS: BP 119/76; O2SAT 99
== END 2023-09-24 22:22 | disposition home or self-care (01) ==
LOC: M ED 15:50
DX: O21.1 Hyperemesis gravidarum with metabolic disturbance (principal); K21.9 Gastro-esophageal reflux disease without esophagitis; J44.9 Chronic obstructive pulmonary disease, unspecified; Z3A.18 18 weeks gestation of pregnancy; Z79.83 Long term (current) use of bisphosphonates; Z79.899 Other long term (current) drug therapy
CPT/HCPCS: 80047; 80076; 81001; 83690; 85025; 96374; 96375; 99284; J2405; J2765

== ENCOUNTER → 2023-12-08 | Outpatient (CLI) | payer OTHER ==
[2023-12-08 17:44] LABS: THYROID STIMULATING HORMONE 0.597 uIU/ML (0.55-4.78); TOTAL 25(OH) VITAMIN D 33.5 NG/ML (20.0-100.0)
[2023-12-08 17:45] LABS: FREE T4 0.91 NG/DL (0.89-1.76)
[2023-12-08 17:51] LABS: HEMATOCRIT 29.9 % (36.0-47.0); HEMOGLOBIN 9.3 g/dl (12.0-15.5); MEAN CORPUSCULAR HEMOGLOBIN 27.5 pg (27.0-33.0); MEAN CORPUSCULAR HGB CONC 31.1 g/dl (32.0-36.5); MEAN CORPUSCULAR VOLUME 88.5 fl (80.0-96.0); PLATELET COUNT, AUTOMATED 221 10^3/uL (150-450); RED BLOOD COUNT 3.38 10^6/uL (4.00-5.40); WHITE BLOOD COUNT 5.5 10^3/uL (4.0-10.0)
== END ==
LOC: M WUC 09:14
PROVIDERS: ATTEND Obstetrics & Gynecology
DX: Z34.82 Encounter for supervision of other normal pregnancy, second trimester (principal)

== ENCOUNTER → 2024-01-24 | Outpatient (CLI) | payer OTHER ==
[~2024-01-24] MED LIST changes: -DOXY-323 PO; +DOXY-441 PO
== END ==
LOC: M RAD 13:39
PROVIDERS: ATTEND Obstetrics & Gynecology
DX: Z34.83 Encounter for supervision of other normal pregnancy, third trimester (principal); Z3A.35 35 weeks gestation of pregnancy

== ENCOUNTER 2024-01-29 10:39 | Inpatient (IN) | payer OTHER ==
[~2024-01-29] VITALS: Ht 170.2 cm; Wt 65.6 kg
[2024-01-29] VITALS (10 sets, daily range): BP systolic 129–161; BP diastolic 81–100
[2024-01-29] MEDS ORDERED: PRENTAB9 PO (10:50)
[2024-01-30] VITALS (12 sets, daily range): BP systolic 131–145; BP diastolic 76–97
[2024-01-30 06:35] LABS: HEMATOCRIT 30.4 % (36.0-47.0); HEMOGLOBIN 9.3 g/dl (12.0-15.5); MEAN CORPUSCULAR HEMOGLOBIN 24.4 pg (27.0-33.0); MEAN CORPUSCULAR HGB CONC 30.6 g/dl (32.0-36.5); MEAN CORPUSCULAR VOLUME 79.8 fl (80.0-96.0); PLATELET COUNT, AUTOMATED 222 10^3/uL (150-450); RED BLOOD COUNT 3.81 10^6/uL (4.00-5.40); WHITE BLOOD COUNT 7.3 10^3/uL (4.0-10.0)
[2024-01-30 06:41] LABS: TOTAL PROTEIN,RANDOM URINE 50.7 MG/DL (0.0-14.0)
[2024-01-30 06:45] LABS: CREATININE,RANDOM URINE 178.6 MG/DL
[2024-01-30 07:01] LABS: URIC ACID 4.1 MG/DL (3.1-7.8)
[2024-01-30 07:03] LABS: LDH LACTATE DEHYDROGENASE 174 U/L (120-246)
[2024-01-30 07:04] LABS: ALT/SGPT < 9 U/L (7.0-40); AST/SGOT 14 U/L (<34); BILIRUBIN,TOTAL 0.5 MG/DL (0.3-1.2); CREATININE FOR GFR 0.71 MG/DL (0.55-1.30); GLOMERULAR FILTRATION RATE > 60.0 (>58)
[2024-01-30] MEDS: miSOPROStol 50MCG 1/2 TABLET PO PRN (11:23)
[2024-01-30] MEDS: PENICILLIN G POTASSIUM 5 MU IV 5 MU in DEXTROSE 5% (D5W) MINI-BAG PLU 100 ML IV STA (11:44)
[2024-01-30 13:04] LABS: HEPATITIS C VIRUS ABY INDEX 0.06 INDEX (<0.8)
[2024-01-30] MEDS: PEN G POT 3,000,000 UNIT/50 ML 3,000,000 UNIT in IV 1 EA IV SCH (15:59)
[2024-01-30] MEDS ORDERED: LIDOCAINE 1% MDV 20ML VIAL INFIL PRN (17:30)
[2024-01-30] MEDS ORDERED: OXYTOCIN DRIP 30 UNITS in IV 1 EA IV PRN (17:30)
[2024-01-30] MEDS ORDERED: CARBOPROST TROMETHAMINE 250 MCG/ML AMP IM PRN (17:30)
[2024-01-30] MEDS ORDERED: OXYTOCIN INJ 10UNITS/ML 1ML VIAL IM PRN (17:30)
[2024-01-30] MEDS: LR 1,000 ML IV SCH (22:48)
[2024-01-30] MEDS: OXYTOCIN DRIP 30 UNITS in IV 1 EA IV SCH (22:49)
[2024-01-31] VITALS (75 sets, daily range): BP systolic 112–189; BP diastolic 72–125; TEMP 98.6; O2SAT 97–99
[2024-01-31] MEDS ORDERED: EPIDURAL/PCA KEYS XX PRN (03:30)
[2024-01-31] MEDS ORDERED: ONDANSETRON 4MG 2ML VIAL IV PRN (03:30)
[2024-01-31] MEDS ORDERED: ePHEDrine SULFATE 25 MG/5 ML(5MG/ML) SYRINGE IVP PRN (03:30)
[2024-01-31] MEDS ORDERED: NALOXONE INJ 0.4MG/1ML VIAL IV PRN (03:30)
[2024-01-31] MEDS ORDERED: diphenhydrAMINE 50MG/ML VIAL IV PRN (03:30)
[2024-01-31] MEDS ORDERED: LR 500 ML IV PRN (03:30)
[2024-01-31] MEDS: FENTANYL/ROPIVACAINE/NACL BAG 100 ML EPIDURAL SCH (04:06)
[2024-01-31] MEDS: LABETALOL 100MG/20ML VIAL IV STA ×3 (04:49→13:22)
[2024-01-31] MEDS ORDERED: ACETAMINOPHEN 500 MG TAB PO PRN (12:30)
[2024-01-31] MEDS ORDERED: MOM 30ML SUSPENSION UDC PO PRN (12:30)
[2024-01-31] MEDS ORDERED: ACETAMINOPHEN 325 MG TAB PO PRN (12:30)
[2024-01-31] MEDS ORDERED: DOCUSATE SODIUM 100MG CAPSULE PO PRN (12:30)
[2024-01-31] MEDS ORDERED: IBUPROFEN 800 MG TAB PO PRN (12:30)
[2024-01-31] MEDS ORDERED: DIBUCAINE 1% OINTMENT 30GM TOP PRN (12:30)
[2024-01-31] MEDS ORDERED: ANUSOL HC CREAM 30GM TOP PRN (12:30)
[2024-01-31] MEDS ORDERED: IBUPROFEN 600MG TAB PO PRN (12:30)
[2024-01-31] MEDS: TRANEXAMIC ACID INJection 1,000 MG in NS 100 ML IV PRN (12:45)
[2024-01-31] MEDS: AMPICILLIN SOD/SULBACTAM SOD 3 GM in SODIUM CHLORIDE 0.9% 100ML ADD 100 ML IV ONE (13:52)
[2024-01-31] MEDS: MAALOX 30 ML SUSP *UDC PO PRN (13:53)
[2024-01-31] MEDS: MAGNESIUM *L&D* 4GM/100ML BAG (40MG/ML) IV ONE (14:17)
[2024-01-31] MEDS: LR 1,000 ML IV SCH (14:17)
[2024-01-31] MEDS: MAG Sulf (OBGYN) 20GM/500ML 20,000 MG in IV 1 EA IV SCH (14:17)
[2024-02-01] VITALS (22 sets, daily range): BP systolic 102–155; BP diastolic 59–90; TEMP 97.7–98.1; O2SAT 96–100
[2024-02-01] MEDS ORDERED: UNRESOLVED CLARIFICATION ENTRY XX SCH (00:01)
[2024-02-01 06:23] LABS: BASO # 0.1 10^3/uL (0.0-0.2); BASO % 0.4 % (0.0-1.0); EOS # 0.1 10^3/uL (0.0-0.5); EOS % 0.6 % (0.0-3.0); HEMATOCRIT 24.9 % (36.0-47.0); HEMOGLOBIN 7.5 g/dl (12.0-15.5); LYMPH # 1.8 10^3/uL (1.5-5.0); LYMPH % 15.8 % (24.0-44.0); MEAN CORPUSCULAR HEMOGLOBIN 23.9 pg (27.0-33.0); MEAN CORPUSCULAR HGB CONC 30.1 g/dl (32.0-36.5); MEAN CORPUSCULAR VOLUME 79.3 fl (80.0-96.0); MONO # 0.8 10^3/uL (0.0-0.8); MONO % 7.1 % (2.0-8.0); NEUTROPHILS # 8.5 10^3/uL (1.5-8.5); PLATELET COUNT, AUTOMATED 248 10^3/uL (150-450); RED BLOOD COUNT 3.14 10^6/uL (4.00-5.40); WHITE BLOOD COUNT 11.4 10^3/uL (4.0-10.0)
[2024-02-01 06:51] LABS: URIC ACID 4.5 MG/DL (3.1-7.8)
[2024-02-01 06:53] LABS: LDH LACTATE DEHYDROGENASE 232 U/L (120-246)
[2024-02-01 06:54] LABS: ALT/SGPT 10 U/L (7.0-40); AST/SGOT 17 U/L (<34); BILIRUBIN,TOTAL 0.3 MG/DL (0.3-1.2); CREATININE FOR GFR 0.75 MG/DL (0.55-1.30); GLOMERULAR FILTRATION RATE > 60.0 (>58)
[2024-02-01] MEDS: PRENATAL VITAMINS CHEWABLE TABLET PO SCH (09:34)
[2024-02-01] MEDS: RHOGAM 300MCG (1500IU) INJ IM SCH (13:31)
[2024-02-02 02:00] VITALS: BP 129/80; O2SAT 97
[2024-02-02 05:54] VITALS: BP 115/71; O2SAT 96
[2024-02-02 07:07] LABS: HEMATOCRIT 25.1 % (36.0-47.0); HEMOGLOBIN 7.8 g/dl (12.0-15.5)
[2024-02-02] MEDS ORDERED: ACET-683 PO (07:22)
[2024-02-02] MEDS ORDERED: IBUP80TA PO (07:22)
[2024-02-02] MEDS: MEASLES,MUMPS,RUBELLA VACCINE INJ (MMR-II) SC.IMMUN ONE (09:00)
[2024-02-02] MEDS: FLUZONE VACCINE TRIVALENT PF(2024-25) 0.5ML SYRINGE IM.IMMUN ONE (10:10)
== END 2024-02-02 13:00 | disposition home or self-care (01) | DRG 560 ==
LOC: M LDO 10:39 → EEVIPCON 01-30 09:57 → M LDI 01-30 09:57 → M OBS 01-31 20:44
PROVIDERS: ADMIT Obstetrics & Gynecology; ATTEND Obstetrics & Gynecology
PROC: 3E0P7VZ Introduction of Hormone into Female Reproductive, Via Natural or Artificial Opening (ICD-10-PCS; 2024-01-30)
PROC: 3E033VJ Introduction of Other Hormone into Peripheral Vein, Percutaneous Approach (ICD-10-PCS; 2024-01-30)
PROC: 10E0XZZ Delivery of Products of Conception, External Approach (ICD-10-PCS; principal; 2024-01-31)
PROC: 30233N1 Transfusion of Nonautologous Red Blood Cells into Peripheral Vein, Percutaneous Approach (ICD-10-PCS; 2024-02-01)
DX: O14.14 Severe pre-eclampsia complicating childbirth (principal); O41.03X0 Oligohydramnios, third trimester, not applicable or unspecified; O72.2 Delayed and secondary postpartum hemorrhage; O09.523 Supervision of elderly multigravida, third trimester; Z37.0 Single live birth; Z3A.36 36 weeks gestation of pregnancy; O43.899 Other placental disorders, unspecified trimester; O69.82X0 Labor and delivery complicated by other cord entanglement, without compression, not applicable or unspecified; O36.5990 Maternal care for other known or suspected poor fetal growth, unspecified trimester, not applicable or unspecified; O32.6XX0 Maternal care for compound presentation, not applicable or unspecified

== ENCOUNTER 2024-05-30 15:57 | Emergency (ER) | payer MEDICAID, OTHER ==
[~2024-05-30] VITALS: Ht 170.2 cm; Wt 54.5 kg
[~2024-05-30 15:57] MED LIST changes: +ACET-683 PO; +IBUP80TA PO; +PRENTAB9 PO
[2024-05-30] MEDS: NS (Normal Saline) 0.9% 1,000 ML IV SCH (16:26)
[2024-05-30] MEDS: ONDANSETRON 4MG 2ML VIAL IV ONE (16:26)
[2024-05-30 16:51] LABS: BASO % 0.2 % (0.0-1.0); HEMATOCRIT 34.7 % (36.0-47.0); HEMOGLOBIN 10.6 g/dl (12.0-15.5); LYMPH # 0.2 10^3/uL (1.5-5.0); MEAN CORPUSCULAR HEMOGLOBIN 23.3 pg (27.0-33.0); MEAN CORPUSCULAR HGB CONC 30.5 g/dl (32.0-36.5); MEAN CORPUSCULAR VOLUME 76.3 fl (80.0-96.0); MONO # 0.2 10^3/uL (0.0-0.8); MONO % 2.1 % (2.0-8.0); NEUTROPHILS # 8.3 10^3/uL (1.5-8.5); NEUTROPHILS % 95.1 % (36.0-66.0); PLATELET COUNT, AUTOMATED 230 10^3/uL (150-450); RED BLOOD COUNT 4.55 10^6/uL (4.00-5.40); WHITE BLOOD COUNT 8.7 10^3/uL (4.0-10.0)
[2024-05-30 17:04] LABS: CK-MB VALUE MASS < 1.0 NG/ML (<3.6); LIPASE 21 U/L (12-53)
[2024-05-30 17:06] LABS: ALBUMIN 4.1 G/DL (3.2-5.2); ALKALINE PHOSPHATASE 57 U/L (35-104); ALT/SGPT < 9 U/L (7.0-40); AST/SGOT 14 U/L (<34); BILIRUBIN,DIRECT 0.3 MG/DL (<0.4); BILIRUBIN,TOTAL 0.8 MG/DL (0.3-1.2); BLOOD UREA NITROGEN 18 MG/DL (9-23); CALCIUM LEVEL 8.6 MG/DL (8.5-10.1); CARBON DIOXIDE LEVEL 19 MMOL/L (20-31); CHLORIDE LEVEL 107 MMOL/L (98-107); GLOMERULAR FILTRATION RATE > 60.0 (>58); GLUCOSE, FASTING 190 MG/DL (60-100); POTASSIUM SERUM 4.3 MMOL/L (3.5-5.1); SODIUM LEVEL 138 MMOL/L (136-145); TOTAL PROTEIN 7.5 G/DL (5.7-8.2)
[2024-05-30 17:07] LABS: CPK CREATINE PHOSPHOKINASE 61 U/L (34-145); MB/CK RELATIVE INDEX 1.63 (< OR =4)
[2024-05-30 17:23] LABS: HCG, SERUM QUALITATIVE NEGATIVE (NEGATIVE)
[2024-05-30 18:07] LABS: CK-MB VALUE MASS < 1.0 NG/ML (<3.6)
[2024-05-30 18:13] LABS: CPK CREATINE PHOSPHOKINASE 55 U/L (34-145); MB/CK RELATIVE INDEX 1.81 (< OR =4)
[2024-05-30] MEDS ORDERED: ISOVUE-370 76% 100ML VIAL As Ordered ONE (18:14)
[2024-05-30] MEDS: ACETAMINOPHEN 325 MG TAB PO ONE (18:47)
[2024-05-30] MEDS ORDERED: PROM25TA12 PO (23:26)
[2024-05-30 23:30] VITALS: BP 130/81; TEMP 96.9; O2SAT 100
== END 2024-05-30 23:48 | disposition home or self-care (01) ==
LOC: M ED 15:57 → EDBD 15:57 → M ED 23:48
DX: R11.10 Vomiting, unspecified (principal); R19.7 Diarrhea, unspecified; I31.39 Other pericardial effusion (noninflammatory); K52.9 Noninfective gastroenteritis and colitis, unspecified; R16.1 Splenomegaly, not elsewhere classified; K59.00 Constipation, unspecified; M25.78 Osteophyte, vertebrae; N28.1 Cyst of kidney, acquired; K21.9 Gastro-esophageal reflux disease without esophagitis; J44.9 Chronic obstructive pulmonary disease, unspecified; Z79.899 Other long term (current) drug therapy; Z79.1 Long term (current) use of non-steroidal anti-inflammatories (NSAID)
CPT/HCPCS: 71045; 74177; 80048; 80076; 82550; 82553; 83690; 84484; 84703; 85025; 87486; 87581; 87633; 87798; 93005; 93041; 93306; 96361; 96374; 99285; J2405; Q9967

== ENCOUNTER → 2024-07-10 | Outpatient (CLI) | payer OTHER ==
[~2024-07-10] MED LIST changes: +PROM25TA12 PO
[2024-07-10 14:24] LABS: AMORPHOUS SEDIMENT MODERATE (NEGATIVE); APPEARANCE, URINE TURBID (CLEAR); BACTERIA, URINE AUTO NEGATIVE (NEGATIVE); BILIRUBIN, URINE AUTO NEGATIVE (NEGATIVE); BLOOD, URINE BLOOD 3+ (NEGATIVE); COLOR, URINE YELLOW (YELLOW); GLUCOSE, URINE (UA) AUTO NEGATIVE (NEGATIVE); KETONE, URINE AUTO NEGATIVE (NEGATIVE); LEUKOCYTE ESTERASE, URINE AUTO TRACE (NEGATIVE); MUCUS, URINE SMALL (NEGATIVE); NITRITE, URINE AUTO NEGATIVE (NEGATIVE); PROTEIN, URINE AUTO 1+ mg/dL (NEGATIVE); RBC, URINE AUTO 4 /HPF (0-3); SPECIFIC GRAVITY URINE AUTO 1.026 (1.002-1.035); SQUAMOUS EPITHELIAL CELL UR AU 8 /HPF (0-6); UROBILINOGEN, URINE AUTO 0.2 mg/dL (0.0-2.0); WBC, URINE AUTO 0 /HPF (0-3)
[2024-07-12 10:08] LABS: ANA SCREEN, IFA POSITIVE (NEGATIVE)
== END ==
LOC: M WUC 11:23
PROVIDERS: ATTEND Nurse Practitioner Acute Care
DX: I31.39 Other pericardial effusion (noninflammatory) (principal)

== ENCOUNTER → 2024-10-25 | Outpatient (REF) | payer OTHER ==
[~2024-10-25] MED LIST changes: +LIDO1ADH93 TOP; -LIDO5DIS41 TOP
[2024-10-25 17:00] LABS: BASO # 0.1 10^3/uL (0.0-0.2); BASO % 1.3 % (0.0-1.0); EOS # 0.1 10^3/uL (0.0-0.5); EOS % 1.6 % (0.0-3.0); LYMPH # 1.5 10^3/uL (1.5-5.0); LYMPH % 27.7 % (24.0-44.0); MONO # 0.4 10^3/uL (0.0-0.8); MONO % 7.7 % (2.0-8.0); NEUTROPHILS # 3.4 10^3/uL (1.5-8.5); NEUTROPHILS % 61.3 % (36.0-66.0); PLATELET COUNT, AUTOMATED 350 10^3/uL (150-450)
[2024-10-25 17:06] LABS: ALT/SGPT 10.0 U/L (7.0-40); AST/SGOT 19.0 U/L (<34); CALCIUM LEVEL 8.6 MG/DL (8.5-10.1); CARBON DIOXIDE LEVEL 26.0 MMOL/L (20-31); CHLORIDE LEVEL 104.0 MMOL/L (98-107); CHOLESTEROL LEVEL 125.0 MG/DL (<200); CHOLESTEROL RISK RATIO 2.2 (<5); CREATININE FOR GFR 0.87 MG/DL (0.55-1.30); GLOMERULAR FILTRATION RATE 85.8 (>58); IRON (FE) 16.0 UG/DL (50-170); LDL CHOLESTEROL 51.5 MG/DL (<100); NON-HDL-C 68.3 MG/DL; POTASSIUM SERUM 4.6 MMOL/L (3.5-5.1); SODIUM LEVEL 140.0 MMOL/L (136-145); TRIGLYCERIDES LEVEL 84.0 MG/DL (<150)
[2024-10-25 17:09] LABS: FREE T4 1.02 NG/DL (0.89-1.76)
[2024-10-25 17:22] LABS: ESTIMATED AVERAGE GLUCOSE 94.0 MG/DL (60-110)
== END ==
LOC: M LAB REF 16:25
PROVIDERS: ATTEND Family Medicine Addiction Medicine
DX: R73.9 Hyperglycemia, unspecified (principal); D64.9 Anemia, unspecified

== ENCOUNTER → 2025-01-10 | Outpatient (REF) | payer OTHER ==
[2025-01-10 15:42] LABS: ALT/SGPT < 9 U/L (7.0-40); AST/SGOT 13 U/L (<34); C REACTIVE PROTEIN QUANTITATIV < 0.50 MG/DL (<1.0); CALCIUM LEVEL 8.7 MG/DL (8.5-10.1); CARBON DIOXIDE LEVEL 25 MMOL/L (20-31); CHLORIDE LEVEL 109 MMOL/L (98-107); CREATININE FOR GFR 0.70 MG/DL (0.55-1.30); GLOMERULAR FILTRATION RATE > 90.0 (>58); POTASSIUM SERUM 3.9 MMOL/L (3.5-5.1); SODIUM LEVEL 145 MMOL/L (136-145)
[2025-01-10 15:44] LABS: COMPLEMENT C4 11.5 MG/DL (12-36)
[2025-01-10 15:51] LABS: AMORPHOUS SEDIMENT LARGE (NEGATIVE); APPEARANCE, URINE TURBID (CLEAR); BACTERIA, URINE AUTO NEGATIVE (NEGATIVE); BILIRUBIN, URINE AUTO NEGATIVE (NEGATIVE); BLOOD, URINE BLOOD NEGATIVE (NEGATIVE); GLUCOSE, URINE (UA) AUTO NEGATIVE (NEGATIVE); KETONE, URINE AUTO NEGATIVE (NEGATIVE); LEUKOCYTE ESTERASE, URINE AUTO NEGATIVE (NEGATIVE); MUCUS, URINE SMALL (NEGATIVE); NITRITE, URINE AUTO NEGATIVE (NEGATIVE); PROTEIN, URINE AUTO NEGATIVE (NEGATIVE); RBC, URINE AUTO 4 /HPF (0-3); SPECIFIC GRAVITY URINE AUTO 1.021 (1.002-1.035); SQUAMOUS EPITHELIAL CELL UR AU 2 /HPF (0-6); UROBILINOGEN, URINE AUTO 0.2 mg/dL (0.0-2.0); WBC, URINE AUTO 2 /HPF (0-3)
[2025-01-10 15:58] LABS: BASO # 0.0 10^3/uL (0.0-0.2); BASO % 0.7 % (0.0-1.0); EOS # 0.0 10^3/uL (0.0-0.5); EOS % 0.7 % (0.0-3.0); LYMPH # 1.5 10^3/uL (1.5-5.0); LYMPH % 25.6 % (24.0-44.0); MONO # 0.4 10^3/uL (0.0-0.8); MONO % 7.3 % (2.0-8.0); NEUTROPHILS # 3.8 10^3/uL (1.5-8.5); NEUTROPHILS % 65.4 % (36.0-66.0); PLATELET COUNT, AUTOMATED 271 10^3/uL (150-450)
[2025-01-10 16:06] LABS: ERYTHROCYTE SEDIMENTATION RATE 4 mm/hr (0-20)
[2025-01-10 16:07] LABS: TOTAL PROTEIN,RANDOM URINE 15.2 MG/DL (0.0-14.0)
== END ==
LOC: M SFHCRHEU 12:37
PROVIDERS: ATTEND Internal Medicine Rheumatology
DX: R76.89 Other specified abnormal immunological findings in serum (principal); I31.39 Other pericardial effusion (noninflammatory)